=== PATIENT | female | born 1990 | race Two or more races ===

== ENCOUNTER 2018-10-04 17:30 | Emergency (ER) | payer MEDICAID, OTHER ==
[~2018-10-04] VITALS: Ht 165.1 cm; Wt 85.3 kg
[2018-10-04 18:41] VITALS: BP 132/87
[2018-10-04 19:26] LABS: Urine Bacteria FEW /hpf (None Seen); Urine Blood Negative /uL (Negative); Urine Mucus FEW (None Seen); Urine Specific Gravity 1.016 (1.001-1.035); Urine WBC 8 /hpf (0 - 5)
== END 2018-10-04 20:34 | disposition home or self-care (01) ==
LOC: ER 17:48
DX: J06.9 Acute upper respiratory infection, unspecified (principal); N39.0 Urinary tract infection, site not specified; R51 Headache
CPT/HCPCS: 36415; 71046; 81001; 84702